=== PATIENT | male | born 1995 | race African-American/Black ===

== ENCOUNTER 2017-10-18 01:57 | Emergency (ER) | payer SELFPAY ==
[2017-10-18] MEDS ORDERED: NS 0.9% 1000 ML* 2,000 ML IV ONE (01:59)
[2017-10-18 02:09] LABS: ABS Basophils 0 10^3/ul (0-0.2); ABS Eosinophils 0.1 10^3/ul (0-0.6); ABS Lymphocytes 2.1 10^3/ul (1.0-4.8); ABS Monocytes 0.4 10^3/ul (0-0.8); ABS Neutrophils 3.2 10^3/ul (1.5-7.7); ABS Nucleated RBC 0 10^3/ul; Eosinophil % 1.9 % (0-6); Hematocrit 40 % (42-52); Hemoglobin 13.7 g/dl (14.0-18.0); Lymphocyte % 36.1 % (25-47); Mean Corpuscular HGB Conc 34 g/dl (31-36); Mean Corpuscular Hemoglobin 31 pg (27-31); Mean Corpuscular Volume 92 fL (80-94); Mean Platelet Volume 6.7 um3 (7.4-10.4); Nucleated Red Blood Cells % 0.2; Platelet Count 410 10^3/ul (150-450); Red Blood Count 4.38 10^6/ul (4.00-5.40); Red Cell Distribution Width 13 % (10.5-15); White Blood Count 5.9 10^3/ul (3.5-10.8)
[2017-10-18 02:19] LABS: INR 0.95 (0.77-1.02)
[2017-10-18 02:27] LABS: EGFR Non-African American 67.4 (>60)
[2017-10-18] MEDS ORDERED: Iodixanol* (CONTRAST) 320 MG/ML 100 ML SDV IV ONE (02:34)
[2017-10-18] MEDS ORDERED: Morphine VIAL* 4 MG/ML VIAL (1 ml vial) IV ONE ×2 (02:45→02:46)
[2017-10-18] MEDS ORDERED: Metoclopramide IV* 5 MG/ML 2 ML VIAL IV SLOW PU ONE (02:45)
[2017-10-18] MEDS ORDERED: Metoclopramide IV* 5 MG/ML 2 ML VIAL ONE (02:46)
[2017-10-18] MEDS ORDERED: Ondansetron INJ* 2 MG/ML VIAL ONE (02:46)
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
[2017-10-18] MEDS ORDERED: Piperacillin/Tazobac (*) 3.375 GM BAG ONE (03:30)
[2017-10-18 03:35] VITALS: BP 113/81
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
== END 2017-10-18 03:20 | disposition short-term general hospital (02) ==
LOC: ED 01:57
DX: S36.81XA Injury of peritoneum, initial encounter (principal); X95.9XXA Assault by unspecified firearm discharge, initial encounter; Y92.9 Unspecified place or not applicable
CPT/HCPCS: 36415; 71045; 71260; 74018; 74177; 80053; 80320; 82150; 82550; 83605; 83690; 85025; 85610; 85730; 86850; 86900; 86901; 86922; 93005; 96374; 96375; 99285; G0480; J2270; J2405; J2543; J2765; P9040; Q9967